=== PATIENT | female | born 1945 ===

== ENCOUNTER 2018-11-15 09:56 | Emergency (ER) | payer OTHER ==
--- NOTE | 2018-11-15 10:48 | C.PDOC ---
History Of Present Illness 73 year old female with PMHx of HTN and diabetes presents to the ED complaining of palpitations in her chest and stomach for 3 days. Reports palpitations are "mostly constant" but she is asymptomatic currently in the ED. Denies prior presentation of symptoms. Denies fever, chest pain, or shortness of breath. States she is visiting from [facility] where she gets treated for diabetes and HTN. Time Seen by Provider: 11/15/18 10:30 Chief Complaint (Nursing): Palpitations History Per: Patient History/Exam Limitations: no limitations Onset/Duration Of Symptoms: Days (3) Current Symptoms Are (Timing): Still Present Past Medical History Reviewed: Historical Data, Nursing Documentation, Vital Signs Vital Signs: Last Vital Signs Temp 97.4 F L 11/15/18 10:03 Pulse 90 11/15/18 10:20 Resp 20 11/15/18 10:03 BP 133/71 11/15/18 10:20 Pulse Ox 98 11/15/18 10:03 - Medical History PMH: HTN Surgical History: Family History: States: No Known Family Hx - Social History Hx Alcohol Use: No Hx Substance Use: No - Immunization History Hx Tetanus Toxoid Vaccination: No Hx Influenza Vaccination: No Hx Pneumococcal Vaccination: No Review Of Systems Except As Marked, All Systems Reviewed And Found Negative. Constitutional: Negative for: Fever Respiratory: Negative for: Shortness of Breath Physical Exam - Physical Exam Additional Physical Exam Comments: Constitutional: No acute distress. Head: Normocephalic. Atraumatic. Eyes: PERRL. ENT: Moist mucous membranes. Neck: Supple. Cardiovascular: Regular rate. Radial pulse 2+ bilaterally. Chest: No tenderness. Respiratory: Clear to auscultation bilaterally. GI: Soft. Nontender. Nondistended. No pulsatile abdominal mass. Back: No CVA tenderness. Musculoskeletal: No tenderness or swelling of extremities. Skin: No rash. Neurologic: Alert, no focal deficit. ED Course And Treatment - Laboratory Results Result Diagrams: 11/15/18 10:45 11/15/18 10:45 ECG: Interpreted By Me, Viewed By Me ECG Rhythm: Sinus Rhythm Interpretation Of ECG: No ST elevations Rate From EC O2 Sat by Pulse Oximetry: 98 (RA) Pulse Ox Interpretation: Normal Medical Decision Making Medical Decision Making: Plan - Bloodwork - CXR CXR shows no pleural effusion, consolidation, ptx, or widened mediastinum. Labs unremarkable including troponin in this patient with symptoms over 24 hours. Will discharge, f/u primary care, instructed to return to ED immediately for any chest or abdominal pain. Disposition - Disposition Referrals: [facility] [Outside] Disposition: HOME/ ROUTINE Disposition Time: 12:45 Condition: GOOD Instructions: Palpitations Forms: [facility] ([place]) - Clinical Impression Clinical Impression: Palpitations - Scribe Statement The provider has reviewed the documentation as recorded by the Scribe Eileen Payton All medical record entries made by the Anjelicaibe were at my direction and personally dictated by me. I have reviewed the chart and agree that the record accurately reflects my personal performance of the history, physical exam, medical decision making, and the department course for this patient. I have also personally directed, reviewed, and agree with the discharge instructions and disposition.
[2018-11-15 10:59] LABS: BASO # 0.1 K/uL (0.0-0.2); BASO % 0.9 % (0.0-2.0); EOS % 0.5 % (0.0-4.0); HEMOGLOBIN 12.3 g/dL (11.0-16.0); LYMPH # 1.8 K/uL (1.0-4.3); LYMPH % 25.7 % (20.0-40.0); MEAN CELL VOLUME 89.6 fL (81.0-99.0); MEAN CORPUSCULAR HEMOGLOBIN 29.8 pg (27.0-31.0); MEAN CORPUSCULAR HGB CONC 33.3 g/dL (33.0-37.0); MEAN PLATELET VOLUME 8.3 fL (7.2-11.7); MONO # 0.3 K/uL (0.0-0.8); MONO % 4.8 % (0.0-10.0); NEUT # 4.8 K/uL (1.8-7.0); NEUT % 68.1 % (50.0-75.0); RBC 4.13 Mil/uL (3.80-5.20); RED CELL DISTRIBUTION WIDTH 13.5 % (11.5-14.5)
[2018-11-15 11:16] LABS: ALB/GLOB RATIO 1.3 (1.0-2.1); ALBUMIN 4.4 g/dL (3.5-5.0); BLOOD UREA NITROGEN 28 mg/dL (7-17); CALCIUM 9.9 mg/dl (8.6-10.4); GFR NON-AFRICAN AMERICAN > 60
[2018-11-15 11:20] LABS: ALT/SGPT 13 U/L (9-52); AST/SGOT 27 U/L (14-36)
[2018-11-15 11:30] LABS: CK-MB 0.83 ng/mL (0.0-3.38)
--- NOTE | 2018-11-15 12:56 | RAD ---
Date of service: 11/15/2018 HISTORY: palpitations COMPARISON: 11/15/2018 TECHNIQUE: Chest PA and lateral views two views. FINDINGS: LUNGS: No active pulmonary disease. PLEURA: No significant pleural effusion identified. No pneumothorax apparent. CARDIOVASCULAR: No aortic atherosclerotic calcification present. Normal cardiac size. No pulmonary vascular congestion. OSSEOUS STRUCTURES: No significant abnormalities. VISUALIZED UPPER ABDOMEN: Normal. OTHER FINDINGS: None. IMPRESSION: No active disease.
[2018-11-15 13:17] VITALS: BP 122/69; PULSE 79; RESP 18; TEMP 98.2; O2SAT 99
--- NOTE | 2018-11-16 12:14 | CARD ---
APPROVED REPORT Date of service: 11/15/2018 EKG Measurement Heart [id number] <Conclusion> Normal sinus rhythm Nonspecific ST and T wave abnormality Abnormal ECG
== END 2018-11-15 13:17 | disposition home or self-care (01) ==
LOC: C.ER 09:56
DX: R00.2 Palpitations (principal)